=== PATIENT | male | born 1980 | race Two or more races ===

== ENCOUNTER 2021-05-12 18:06 | Emergency (ER) | payer OTHER ==
[~2021-05-12] VITALS: Ht 162.6 cm; Wt 58.1 kg
[2021-05-12 18:50] LABS: BASOPHILS # (AUTO) 0.1 K/uL (0.0-0.2); BASOPHILS % (AUTO) 0.5 % (0.0-2.0); EOSINOPHILS % (AUTO) 0.7 % (0.0-6.0); HEMATOCRIT 46 % (39-51); HEMOGLOBIN 15.2 g/dL (13.5-17.5); LYMPHOCYTES # (AUTO) 2.8 K/uL (0.8-4.8); LYMPHOCYTES % (AUTO) 17.2 % (20.0-44.0); MEAN CORPUSCULAR HGB CONC 33 g/dl (31.0-36.0); MEAN CORPUSCULAR VOLUME 96 fL (80-96); MONOCYTES # (AUTO) 1.5 K/uL (0.1-1.30); NEUTROPHILS # (AUTO) 11.7 K/uL (1.8-8.9); NEUTROPHILS % (AUTO) 72.6 % (43.0-81.0); PLATELET COUNT (AUTO) 216 K/uL (150-450); RED BLOOD CELL COUNT(AUTO) 4.77 MIL/uL (4.5-6.0); WHITE BLOOD COUNT (AUTO) 16.1 K/uL (4.3-11.0)
[2021-05-12] MEDS ORDERED: IOHEXOL-300 100 ML VIAL IV ONE (18:52)
[2021-05-12] MEDS ORDERED: IV NS 0.9% 250 ML IV ONE (18:52)
[2021-05-12] MEDS ORDERED: IV NS 0.9% 1,000 ML BAG IV ONE (19:00)
[2021-05-12 19:04] LABS: CALCIUM, SERUM 8.4 mg/dL (8.5-10.1); CREATININE 0.8 mg/dL (0.6-1.3); POTASSIUM 3.7 mmol/L (3.5-5.1)
[2021-05-12 19:10] LABS: ALBUMIN 4.1 g/dL (3.4-5.0); BILIRUBIN,DIRECT 0.2 mg/dL (0.0-0.2); BILIRUBIN,TOTAL 0.7 mg/dL (0.2-1.0); TOTAL PROTEIN, SERUM 7.6 g/dL (6.4-8.2)
--- NOTE | 2021-05-12 19:36 | NUR ---
PT BROUGHT IN C/O LOWER ABD PAIN DESCRIBED BLOATING X 2DAYS DENIES N/V NO FEVER.PT BREATHING EVEN AND UNLABORED ON MONITOR VSS.
[2021-05-12 19:54] LABS: BILIRUBIN,URINE Negative (NEGATIVE); COLOR,URINE YELLOW (YELLOW); LEUKOCYTE ESTERASE ,URINE Negative (NEGATIVE); NITRITE, URINE Negative (NEGATIVE); PROTEIN,URINE Negative (NEGATIVE); UGLUCOSE Negative (NEGATIVE); UROBILINOGEN,URINE 0.2 EU/dL (0.2)
[2021-05-12 20:08] LABS: BACTERIA,URINE Rare /HPF (None Seen); RBC,URINE NONE SEEN /HPF (0-2); SQUAMOUS EPITHELIAL CELL,UR Few /HPF (None Seen); WBC,URINE NONE SEEN /HPF (0-3)
[2021-05-12] MEDS ORDERED: CIPR500T5 PO (21:09)
[2021-05-12] MEDS ORDERED: METR500T PO (21:09)
[2021-05-12] MEDS ORDERED: CIPROFLOXACIN HCL 500 MG TABLET ONE (21:23)
[2021-05-12] MEDS ORDERED: METRONIDAZOLE 500 MG TABLET ONE (21:23)
--- NOTE | 2021-05-12 21:26 | NUR ---
Patient discharged to home in stable condition. Written and verbal after care instructions given. Patient verbalizes understanding of instruction. IV line discontinued and vitals stable at time of discharge.
[2021-05-12] MEDS ORDERED: CIPROFLOXACIN HCL 500 MG TABLET PO ONE (21:30)
[2021-05-12] MEDS ORDERED: METRONIDAZOLE 500 MG TABLET PO ONE (21:30)
[2021-05-12 21:31] VITALS: BP 106/59
== END 2021-05-12 21:30 | disposition home or self-care (01) ==
LOC: ER 18:13
DX: K52.9 Noninfective gastroenteritis and colitis, unspecified (principal); N39.0 Urinary tract infection, site not specified; Z79.899 Other long term (current) drug therapy
CPT/HCPCS: 36415; 74177; 80048; 80076; 81001; 83690; 85025; 96360; 99285; J7030; J7050; Q9967